=== PATIENT | male | born 1955 | race Caucasian/White ===

== ENCOUNTER 2017-06-12 03:30 | Inpatient (IN) | payer BC ==
[2017-06-12] MEDS ORDERED: MORPHINE SULFATE 4 MG/ML DISP.SYRIN. IV (04:00)
[2017-06-12] MEDS ORDERED: ONDANSETRON PF 4 MG/2 ML VIAL. IV (04:00)
[2017-06-12] MEDS: IV NORMAL SALINE 1000ML BAG 1,000 ML IV ×3 (04:27→17:20)
[2017-06-12 04:50] LABS: ADD MAN DIFF? NO
[2017-06-12 04:52] LABS: BASO % 1 % (0-3); EOS # 0.2 x10^3/uL (0.0-0.7); EOS % 2 % (0-3); HEMATOCRIT 29.3 % (39.0-53.0); HEMOGLOBIN 9.9 g/dL (13.0-17.5); LYMPH # 2.4 x10^3/uL (1.0-4.8); LYMPH % 26 % (24-48); MEAN CORPUSCULAR HEMOGLOBIN 33 pg (25-35); MEAN CORPUSCULAR HGB CONC 34 g/dL (31-37); MEAN CORPUSCULAR VOLUME 97 fL (79-100); MONO # 0.9 x10^3/uL (0.0-1.1); MONO % 10 % (0-9); NEUT # 5.7 x10^3uL (1.8-7.7); NEUT % 61 % (31-73); PLATELET COUNT 233 x10^3/uL (140-400); RED BLOOD COUNT 3.03 x10^6/uL (4.30-5.70); RED CELL DISTRIBUTION WIDTH 13.3 % (11.5-14.5); WHITE BLOOD COUNT 9.3 x10^3/uL (4.0-11.0)
[2017-06-12 05:01] LABS: ANION GAP 12 (6-14); BLOOD UREA NITROGEN 34 mg/dL (8-26); BUN/CREATININE RATIO 38 (6-20); CALCIUM 8.1 mg/dL (8.5-10.1); CARBON DIOXIDE 23 mmol/L (21-32); CHLORIDE 106 mmol/L (98-107); CREATININE 0.9 mg/dL (0.7-1.3); GFR 86.1; GLUCOSE 114 mg/dL (70-99); POTASSIUM 4.4 mmol/L (3.5-5.1); SODIUM 141 mmol/L (136-145)
[2017-06-12 05:07] LABS: ALBUMIN 3.3 g/dL (3.4-5.0); ALBUMIN/GLOBULIN RATIO 1.2 (1.0-1.7); ALK PHOS 44 U/L (46-116); ALT (SGPT) 21 U/L (16-63); AST (SGOT) 11 U/L (15-37); TOTAL BILIRUBIN 0.1 mg/dL (0.2-1.0)
[2017-06-12] MEDS: PANTOPRAZOLE IV PUSH 40 MG VIAL. IVP (08:40)
[2017-06-12] MEDS: PANTOPRAZOLE SODIUM IV DRIP 80 MG in IV NORMAL SALINE 100ML 100 ML IV ×2 (09:13→18:00)
[2017-06-12 10:08] LABS: ADD MAN DIFF? NO
[2017-06-12 10:11] LABS: BASO % 1 % (0-3); EOS # 0.2 x10^3/uL (0.0-0.7); EOS % 2 % (0-3); HEMATOCRIT 27.9 % (39.0-53.0); HEMOGLOBIN 9.3 g/dL (13.0-17.5); LYMPH # 2.1 x10^3/uL (1.0-4.8); LYMPH % 28 % (24-48); MEAN CORPUSCULAR HEMOGLOBIN 33 pg (25-35); MEAN CORPUSCULAR HGB CONC 34 g/dL (31-37); MEAN CORPUSCULAR VOLUME 97 fL (79-100); MONO # 0.8 x10^3/uL (0.0-1.1); MONO % 10 % (0-9); NEUT # 4.4 x10^3uL (1.8-7.7); NEUT % 59 % (31-73); PLATELET COUNT 220 x10^3/uL (140-400); RED BLOOD COUNT 2.87 x10^6/uL (4.30-5.70); RED CELL DISTRIBUTION WIDTH 13.2 % (11.5-14.5); WHITE BLOOD COUNT 7.5 x10^3/uL (4.0-11.0)
[2017-06-12 10:31] LABS: ALBUMIN 3.3 g/dL (3.4-5.0); ALBUMIN/GLOBULIN RATIO 1.2 (1.0-1.7); ALK PHOS 46 U/L (46-116); ALT (SGPT) 19 U/L (16-63); ANION GAP 10 (6-14); AST (SGOT) 13 U/L (15-37); BLOOD UREA NITROGEN 27 mg/dL (8-26); BUN/CREATININE RATIO 27 (6-20); CALCIUM 7.8 mg/dL (8.5-10.1); CARBON DIOXIDE 25 mmol/L (21-32); CHLORIDE 109 mmol/L (98-107); GFR 76.2; GLUCOSE 109 mg/dL (70-99); POTASSIUM 4.6 mmol/L (3.5-5.1); SODIUM 144 mmol/L (136-145); TOTAL BILIRUBIN 0.2 mg/dL (0.2-1.0)
[2017-06-12] MEDS ORDERED: CONTRAST GIVEN MC (12:15)
[2017-06-12] MEDS: IOHEXOL 300 MG/ML 100ML VIAL. IV (12:15)
[2017-06-12] MEDS: IOHEXOL 240 MG/ML 50ML VIAL. PO (12:15)
[2017-06-12 14:44] LABS: HEMATOCRIT 27.6 % (39.0-53.0); HEMOGLOBIN 9.2 g/dL (13.0-17.5); MEAN CORPUSCULAR HEMOGLOBIN 32 pg (25-35); MEAN CORPUSCULAR HGB CONC 33 g/dL (31-37); MEAN CORPUSCULAR VOLUME 97 fL (79-100); PLATELET COUNT 234 x10^3/uL (140-400); RED BLOOD COUNT 2.85 x10^6/uL (4.30-5.70); RED CELL DISTRIBUTION WIDTH 13.1 % (11.5-14.5)
[2017-06-12] MEDS ORDERED: clonazePAM 0.5 MG TABLET PO (14:45)
[2017-06-12] MEDS ORDERED: tiZANidine 4 MG TABLET. PO (14:45)
[2017-06-12] MEDS: PSEUDOEPHEDRINE ER 120 MG TABLET.ER. PO (15:58)
[2017-06-12] MEDS: LOSARTAN POTASSIUM 50 MG TABLET. PO (15:58)
[2017-06-12] MEDS: OXYMETAZOLINE 0.05% NASAL SPRAY 30ML BOTTLE. NS ×2 (15:58→20:52)
[2017-06-12] MEDS: clonazePAM 1 MG TABLET PO (20:51)
[2017-06-12] MEDS: SIMVASTATIN 40 MG TABLET. PO (20:51)
[2017-06-12] MEDS: PRAZOSIN 1 MG CAPSULE. PO (20:51)
[2017-06-12] MEDS: HYDROcodone/APAP 5/325MG 1 TAB TABLET PO (20:52)
[2017-06-13] MEDS: PANTOPRAZOLE SODIUM IV DRIP 80 MG in IV NORMAL SALINE 100ML 100 ML IV ×2 (03:52→16:00)
[2017-06-13 05:59] LABS: HEMATOCRIT 21.5 % (39.0-53.0); HEMOGLOBIN 7.3 g/dL (13.0-17.5); MEAN CORPUSCULAR HEMOGLOBIN 33 pg (25-35); MEAN CORPUSCULAR HGB CONC 34 g/dL (31-37); MEAN CORPUSCULAR VOLUME 97 fL (79-100); PLATELET COUNT 180 x10^3/uL (140-400); RED BLOOD COUNT 2.21 x10^6/uL (4.30-5.70); RED CELL DISTRIBUTION WIDTH 13.4 % (11.5-14.5); WHITE BLOOD COUNT 5.2 x10^3/uL (4.0-11.0)
[2017-06-13] MEDS: IV NORMAL SALINE 1000ML BAG 1,000 ML IV ×4 (06:40→20:19)
[2017-06-13] MEDS ORDERED: PANTOPRAZOLE 40 MG TABLET.DR. PO (07:30)
[2017-06-13] MEDS: LOSARTAN POTASSIUM 50 MG TABLET. PO (08:40)
[2017-06-13] MEDS: CITALOPRAM 20 MG TABLET. PO (08:40)
[2017-06-13] MEDS: clonazePAM 1 MG TABLET PO ×2 (08:50→20:19)
[2017-06-13] MEDS: OXYMETAZOLINE 0.05% NASAL SPRAY 30ML BOTTLE. NS ×2 (09:00→20:20)
[2017-06-13] MEDS ORDERED: LIDOCAINE 2% 100 MG/5 ML SYRINGE. (13:10)
[2017-06-13] MEDS ORDERED: PROPOFOL 20 ML IV (13:10)
[2017-06-13] MEDS: EPINEPHrine 1 MG/ML VIAL SQ (13:44)
[2017-06-13] MEDS ORDERED: EPINEPHrine SYRINGE 1 MG/10 ML SYRINGE (13:58)
[2017-06-13 14:33] LABS: HEMATOCRIT 22.1 % (39.0-53.0); HEMOGLOBIN 7.6 g/dL (13.0-17.5); MEAN CORPUSCULAR HEMOGLOBIN 34 pg (25-35); MEAN CORPUSCULAR HGB CONC 35 g/dL (31-37); MEAN CORPUSCULAR VOLUME 98 fL (79-100); PLATELET COUNT 184 x10^3/uL (140-400); RED BLOOD COUNT 2.27 x10^6/uL (4.30-5.70)
[2017-06-13] MEDS: PRAZOSIN 1 MG CAPSULE. PO (20:18)
[2017-06-13] MEDS: HYDROcodone/APAP 5/325MG 1 TAB TABLET PO (20:19)
[2017-06-13] MEDS: SIMVASTATIN 40 MG TABLET. PO (20:19)
[2017-06-13 22:35] LABS: MEAN CORPUSCULAR HEMOGLOBIN 34 pg (25-35); MEAN CORPUSCULAR HGB CONC 35 g/dL (31-37); MEAN CORPUSCULAR VOLUME 97 fL (79-100); PLATELET COUNT 186 x10^3/uL (140-400); RED CELL DISTRIBUTION WIDTH 13.3 % (11.5-14.5); WHITE BLOOD COUNT 5.9 x10^3/uL (4.0-11.0)
[2017-06-13 22:50] LABS: HEMATOCRIT 20.4 % (39.0-53.0)
[2017-06-14] MEDS: PANTOPRAZOLE SODIUM IV DRIP 80 MG in IV NORMAL SALINE 100ML 100 ML IV ×2 (00:04→10:00)
[2017-06-14] MEDS: HYDROcodone/APAP 5/325MG 1 TAB TABLET PO ×2 (01:58→05:55)
[2017-06-14 02:25] LABS: IMMEDIATE SPIN CROSSMATCH 1 1
[2017-06-14] MEDS: IV NORMAL SALINE 1000ML BAG 1,000 ML IV ×4 (05:55→20:37)
[2017-06-14] MEDS: LOSARTAN POTASSIUM 50 MG TABLET. PO (08:21)
[2017-06-14] MEDS: OXYMETAZOLINE 0.05% NASAL SPRAY 30ML BOTTLE. NS ×2 (08:21→20:35)
[2017-06-14] MEDS: CITALOPRAM 20 MG TABLET. PO (08:21)
[2017-06-14] MEDS: clonazePAM 1 MG TABLET PO ×2 (08:21→20:36)
[2017-06-14 08:36] LABS: HEMATOCRIT 24.9 % (39.0-53.0); HEMOGLOBIN 8.2 g/dL (13.0-17.5); MEAN CORPUSCULAR HEMOGLOBIN 31 pg (25-35); MEAN CORPUSCULAR HGB CONC 33 g/dL (31-37); MEAN CORPUSCULAR VOLUME 95 fL (79-100); PLATELET COUNT 210 x10^3/uL (140-400); RED BLOOD COUNT 2.62 x10^6/uL (4.30-5.70); RED CELL DISTRIBUTION WIDTH 13.7 % (11.5-14.5); WHITE BLOOD COUNT 4.9 x10^3/uL (4.0-11.0)
[2017-06-14] MEDS ORDERED: ACETAMINOPHEN 500 MG TABLET PO (09:00)
[2017-06-14 14:18] LABS: HEMATOCRIT 24.2 % (39.0-53.0); HEMOGLOBIN 8.2 g/dL (13.0-17.5); MEAN CORPUSCULAR HEMOGLOBIN 33 pg (25-35); MEAN CORPUSCULAR HGB CONC 34 g/dL (31-37); MEAN CORPUSCULAR VOLUME 96 fL (79-100); PLATELET COUNT 202 x10^3/uL (140-400); RED BLOOD COUNT 2.51 x10^6/uL (4.30-5.70); RED CELL DISTRIBUTION WIDTH 13.7 % (11.5-14.5); WHITE BLOOD COUNT 4.8 x10^3/uL (4.0-11.0)
[2017-06-14] MEDS: PANTOPRAZOLE 40 MG TABLET.DR. PO (16:50)
[2017-06-14] MEDS: SIMVASTATIN 40 MG TABLET. PO (20:33)
[2017-06-14] MEDS: PRAZOSIN 1 MG CAPSULE. PO (20:35)
[2017-06-14 22:18] LABS: HEMATOCRIT 24.8 % (39.0-53.0); HEMOGLOBIN 8.2 g/dL (13.0-17.5); MEAN CORPUSCULAR HEMOGLOBIN 32 pg (25-35); MEAN CORPUSCULAR HGB CONC 33 g/dL (31-37); MEAN CORPUSCULAR VOLUME 98 fL (79-100); PLATELET COUNT 225 x10^3/uL (140-400); RED BLOOD COUNT 2.54 x10^6/uL (4.30-5.70); RED CELL DISTRIBUTION WIDTH 13.6 % (11.5-14.5); WHITE BLOOD COUNT 6.2 x10^3/uL (4.0-11.0)
[2017-06-15] MEDS: IV NORMAL SALINE 1000ML BAG 1,000 ML IV ×2 (02:56→09:11)
[2017-06-15] MEDS: HYDROcodone/APAP 5/325MG 1 TAB TABLET PO (02:59)
[2017-06-15] MEDS: PANTOPRAZOLE 40 MG TABLET.DR. PO ×2 (07:42→16:21)
[2017-06-15] MEDS: clonazePAM 1 MG TABLET PO (09:07)
[2017-06-15] MEDS: CITALOPRAM 20 MG TABLET. PO (09:08)
[2017-06-15] MEDS: OXYMETAZOLINE 0.05% NASAL SPRAY 30ML BOTTLE. NS (09:08)
[2017-06-15] MEDS: LOSARTAN POTASSIUM 50 MG TABLET. PO (09:09)
== END 2017-06-15 19:20 | disposition home or self-care (01) | DRG 378 ==
LOC: 5 NORTH 03:30
PROC: 30233N1 Transfusion of Nonautologous Red Blood Cells into Peripheral Vein, Percutaneous Approach (ICD-10-PCS; principal; 2017-06-13 13:37)
PROC: 0W3P8ZZ Control Bleeding in Gastrointestinal Tract, Via Natural or Artificial Opening Endoscopic (ICD-10-PCS; 2017-06-13 13:37)
PROC: 0DD68ZX Extraction of Stomach, Via Natural or Artificial Opening Endoscopic, Diagnostic (ICD-10-PCS; 2017-06-13 13:37)
DX: K25.0 Acute gastric ulcer with hemorrhage (principal); D62 Acute posthemorrhagic anemia; K76.89 Other specified diseases of liver; E78.5 Hyperlipidemia, unspecified; K25.4 Chronic or unspecified gastric ulcer with hemorrhage; K26.4 Chronic or unspecified duodenal ulcer with hemorrhage; F32.9 Major depressive disorder, single episode, unspecified; F43.10 Post-traumatic stress disorder, unspecified; G89.29 Other chronic pain; I10 Essential (primary) hypertension; G47.00 Insomnia, unspecified; J30.9 Allergic rhinitis, unspecified; M54.9 Dorsalgia, unspecified; K21.0 Gastro-esophageal reflux disease with esophagitis; K57.30 Diverticulosis of large intestine without perforation or abscess without bleeding; Z79.899 Other long term (current) drug therapy; Z80.0 Family history of malignant neoplasm of digestive organs; Z83.3 Family history of diabetes mellitus; Z87.891 Personal history of nicotine dependence; Z90.49 Acquired absence of other specified parts of digestive tract; Z86.14 Personal history of Methicillin resistant Staphylococcus aureus infection
CPT/HCPCS: 36415; 74177; 80053; 85025; 85027; 86850; 86900; 86901; 86920; 88305; 88342; C9113; J0171; J2704; J7030; P9016; Q9966; Q9967